=== PATIENT | male | born 1965 | race Caucasian/White ===

== ENCOUNTER 2019-01-01 05:18 | Inpatient (IN) | payer MEDICAID ==
[2019-01-01 06:03] VITALS: BP 98/59
[2019-01-01 06:05] LABS: HEMATOCRIT 24.4 % (42.0-54.0); HEMOGLOBIN 8.1 g/dL (13.5-17.5); MCH 30.6 pg (26.0-34.0); MCHC 33.2 g/dL (31.0-37.0); MCV 92.1 fL (80.0-100.0); MEAN PLATELET VOLUME 8.8 fL (7.4-10.4); PLATELET COUNT 394 10x3/uL (130-400); RBC 2.65 10x6/uL (4.20-6.10); RDW 18.1 % (11.5-14.5); WBC 25.6 10x3/uL (4.8-10.8)
[2019-01-01 06:19] LABS: ALBUMIN 1.9 g/dL (3.4-5.0); ALKALINE PHOSPHATASE 143 U/L (46-116); ALT (SGPT) 11 U/L (10-68); BILIRUBIN - TOTAL 0.77 mg/dL (0.2-1.3); CALC OSMOLALITY 265 mosm/kg (275-300); CALCIUM 7.8 mg/dL (8.5-10.1); CARBON DIOXIDE 25.5 mmol/L (21.0-32.0); CHLORIDE - SERUM 99 mmol/L (98-107); CREATININE - SERUM 0.6 mg/dL (0.6-1.3); GLUCOSE 94 mg/dL (74-106); POTASSIUM - SERUM 3.6 mmol/L (3.5-5.1); PROTEIN - SERUM 6.7 g/dL (6.4-8.2); SODIUM 133 mmol/L (136-145); UREA NITROGEN 13 mg/dL (7-18); eGFR NON AFRICAN AMERICAN > 90 mL/min (90-120)
--- NOTE | 2019-01-01 06:24 | NUR ---
0618--RECVD REPORT FROM ER NURSE INOCENCIA. INOCENCIA REPORTS THAT DR SNOWDEN WANTS THE PATIENT TO STAY IN THE ER TO BE OBSERVED- RESPIRATIONS ARE AT 6 PER MIN AT THIS TIME/. ER WILL CALL WHEN THE PATIENT IS READY FOR TRANSPORT
[2019-01-01 06:26] LABS: CREATINE KINASE 34 UL (21-232); LIPASE 43 U/L (73-393); PRO BNP 615 pg/mL (0-125); TROPONIN-I < 0.017 ng/mL (0.000-0.060)
[2019-01-01 06:49] LABS: EOSINOPHILS 2 % (0-7); LYMPHOCYTES 16 % (15-50); MONOCYTES 4 % (2-11); NEUTROPHILS 70 % (40-80); PLATELET ESTIMATE NORMAL
--- NOTE | 2019-01-01 07:00 | MORECARE ---
CASE MANAGEMENT DISCHARGE SUMMARY PATIENT: QUIN VILLEGAS UNIT: [id number] ADM DATE: 01/01/19 AGE: 53 : 67 SEX: M ROOM/BED: D.1212 AUTHOR: CHRISTINE,DOC PHYSICIAN: REFERRING PHYSICIAN: GISELA ELIAS MD DATE OF SERVICE: 01/01/19 Discharge Plan Patient Name: QUIN VILLEGAS [facility] [facility] 1965 Planned Disposition: Home Anticipated Discharge Date: 01/06/19 Discharge Date: Expected LOS: 5 Initial Reviewer: [email or web address] Initial Review Date: 01/01/2019 Generated: 01/01/19 7:59 am DCPIA - Discharge Planning Initial Assessment Updated by [email or web address]: Connie Betancur on 01/01/19 6:56 am * Is the patient Alert and Oriented? Yes * How many steps to enter\exit or inside your home? * PCP DR. OLIVER ([place]) * Pharmacy [facility] IN [place] * Preadmission Environment Home with Family * ADLs Independent * Equipment Other Walker * Other Equipment KNEE ROLLER PER * List name and contact numbers for known caregivers / representatives who currently or will assist patient after discharge: SARAH () [phone] * Verbal permission to speak to the caregivers and representatives has been obtained from the patient. Yes * Community resources currently utilized None * Additional services required to return to the preadmission environment? Yes * Can the patient safely return to the preadmission environment? Yes * Has this patient been hospitalized within the prior 30 days at any hospital? No Patient Name: QUIN VILLEGAS Page [id number] All edits/amendments must be made on the electronic document DICTATION DATE: 01/01/19658 MANUFACTURING ENGINEERING MANAGER: ROBINA 01/01/19658 RPT#: [id number] DC DATE: STATUS: ADM IN [facility] [address] [place] [address] END OF REPORT
--- NOTE | 2019-01-01 07:06 | MORECARE ---
CASE MANAGEMENT DISCHARGE SUMMARY PATIENT: QUIN VILLEGAS UNIT: [id number] ADM DATE: 01/01/19 AGE: 53 : 67 SEX: M ROOM/BED: D.1212 AUTHOR: CHRISTINE,DOC PHYSICIAN: REFERRING PHYSICIAN: GISELA ELIAS MD DATE OF SERVICE: 01/01/19 Discharge Plan Patient Name: QUIN VILLEGAS Facility: [facility]:[place] : 1965 Planned Disposition: Home Anticipated Discharge Date: 01/06/19 Discharge Date: Expected LOS: 5 Initial Reviewer: [email or web address] Initial Review Date: 01/01/2019 Generated: 01/01/19 8:06 am Comments DCP- Discharge Planning Updated by [email or web address]: Connie Betancur on 01/01/19 6:[address] Patient Name: QUIN VILLEGAS Admission Status: ER Accout number: [id number] Admission Date: 01-01-2019 : 1965 Admission Diagnosis: Attending: GISELA ELIAS Current LOS: 1 Anticipated DC Date: 01-06-2019 Planned Disposition: Home Primary Insurance: [employer] EXCHANGE Discharge Planning Comments: CM MET WITH PATIENT AND (SARAH) REGARDING D/C NEEDS AND PLANS. STATED THERE ARE 2 STEPS TO ENTER HOME AND NO STAIRS INSIDE. STATED SHE WILL DRIVE PATIENT HOME AT DISCHARGE. PATIENT IS INDEPENDENT WITH HIS CARE AND HAS A KNEE ROLLER ( CALLED IT) AND A WALKER AT HOME. PATIENTS PCP IS DR. OLIVER AT [place] AND USES [facility] IN [place]. PATIENT AND LIVE IN [facility]. PATIENT REFUSED HOME HEALTH AND SIGNED THE REFUSAL CHOICE FORM. PACKET OF CHOICES WERE GIVEN TO PATIENT. CM WILL CONTINUE TO FOLLOW PATIENT WITH D/C NEEDS AND PLANS. Tufting Machine Fixer: Connie Betancru DCPIA - Discharge Planning Initial Assessment Updated by [email or web address]: Connie Betancur on 01/01/19 6:56 am * Is the patient Alert and Oriented? Yes * How many steps to enter\exit or inside your home? * PCP DR. OLIVER ([place]) * Pharmacy [facility] IN [place] * Preadmission Environment Home with Family * ADLs Independent * Equipment Other Walker * Other Equipment KNEE ROLLER PER * List name and contact numbers for known caregivers / representatives who currently or will assist patient after discharge: SARAH () [phone] * Verbal permission to speak to the caregivers and representatives has been obtained from the patient. Yes * Community resources currently utilized None * Additional services required to return to the preadmission environment? Yes * Can the patient safely return to the preadmission environment? Yes * Has this patient been hospitalized within the prior 30 days at any hospital? No Last DP export: 01/01/19 5:59 a Patient Name: QUIN VILLEGAS Page [id number] All edits/amendments must be made on the electronic document DICTATION DATE: 01/01/19705 STEEL INSPECTOR: RBOINA 01/01/19705 RPT#: [id number] DC DATE: STATUS: ADM IN [facility] [address] [place] [address] END OF REPORT
--- NOTE | 2019-01-01 07:50 | MORECARE ---
CASE MANAGEMENT DISCHARGE SUMMARY PATIENT: QUIN VILLEGAS UNIT: [id number] ADM DATE: 01/01/19 AGE: 53 : 67 SEX: M ROOM/BED: D.1212 AUTHOR: CHRISTINE,DOC PHYSICIAN: REFERRING PHYSICIAN: GISELA ELIAS MD DATE OF SERVICE: 01/01/19 Discharge Plan Patient Name: QUIN VILLEGAS [facility] [facility] 1965 Planned Disposition: Anticipated Discharge Date: Discharge Date: Expected LOS: 0 Initial Reviewer: [email or web address] Initial Review Date: 01/01/2019 Generated: 01/01/19 8:50 am Patient Name: QUIN VILLEGAS Page [id number] All edits/amendments must be made on the electronic document DICTATION DATE: 01/01/19749 BICYCLE COURIER: ROBINA 01/01/19749 RPT#: [id number] [place] DATE: STATUS: ADM IN [facility] [address] [place] [address] END OF REPORT
[2019-01-01 08:00] VITALS: BP 95/59
--- NOTE | 2019-01-01 09:14 | NUR ---
CM WAS CALLED TO PATIENTS ROOM REGARDING HOSPICE. PATIENTS SON (MINOR) AND OTHER FAMILY SPOKE WITH CM AND REQUESTED [facility]. PATIENT WANTS TO GO HOME WITH HOSPICE. ORDER WAS OBTAINED AND FAXED TO [facility] [place]ERIY AT [place] STATED THEY WOULD BE AT HOSPITAL SOON TO SPEAK WITH FAMILY. THE CHOICES FOR HOSPICE WAS GIVEN TO FAMILY AND CHOICE FORM SIGNED. CM WILL CONTINUE TO FOLLOW PATIENT.
[2019-01-01 10:31] VITALS: BP 96/59; BMI 15.2
--- NOTE | 2019-01-01 11:00 | NUR ---
ALERT AND ORIENTED X4. RESTING IN BED. INSERT LEVY CATHETER 18FR. INFLATE BULB 10ml OF SALINE. URINE CLEAR YELLOW. SECURE LEVY TO INNER RT THIGH. LEVY DRAINING BY GRAVITY. DENIES ANY OTHER NEEDS AT THIS TIME. CONTINUE PLAN OF CARE AND SAFETY PRECAUTIONS.
[2019-01-01 12:00] VITALS: BP 100/60
[2019-01-01 16:00] VITALS: BP 98/61
--- NOTE | 2019-01-01 18:27 | NUR ---
ALERT AND ORIENTED X4. RESTING IN BED. FAMILY AT BEDSIDE. DISCHARGE INSTRUCTIONS GIVEN VERBALLY AND WRITTEN. DISCHARGE PAPERS SIGNED ON CHART. DC RT AC IV TIP INTACT. LT FA IV LEFT FOR TRANSPORTATION VIA AMBULANCE. LEVY LEFT FOR HOME HOSPICE. [facility] NOTIFIED FOR TRANSPORTATION. CONTINUE PLAN OF CARE AND SAFETY PRECAUTIONS.
--- NOTE | 2019-01-01 18:52 | NUR ---
[facility] ARRIVES FROM TRANSPORTATION. ASSIST TRANSFER FROM BED TO STRETCHER. DEPARTS FROM UNIT.
--- NOTE | 2019-01-02 09:47 | MORECARE ---
CASE MANAGEMENT DISCHARGE SUMMARY PATIENT: QUIN VILLEGAS UNIT: [id number] ADM DATE: 01/01/19 AGE: 53 : 67 SEX: M ROOM/BED: D.1212 AUTHOR: DIANA KING PHYSICIAN: REFERRING PHYSICIAN: GISELA ELIAS MD DATE OF SERVICE: 01/02/19 Discharge Plan Patient Name: QUIN VILLEGAS Facility: [facility]:[place] : 1965 Planned Disposition: Anticipated Discharge Date: Discharge Date: 01/01/2019 Expected LOS: 0 Initial Reviewer: [email or web address] Initial Review Date: 01/02/2019 Generated: 01/02/19 10:46 am Comments DCP- Discharge Planning Updated by [email or web address]: Chantal Reddy on 01/01/19 11:[address] Patient Name: QUIN VILLEGAS Encounter No: [id number] : 1965 Primary Insurance: [employer] EXCHANGE Production Editor: : ALEKSANDRA Note: HPI Narrative Patient arrives to the ER as a transfer from an outside facility for further evaluation of probable metastatic disease. Patient presented to the Hospital in [facility] with a several month history of increased weakness and decreased intake. On presentation, patient looks thin and cachectic and chronically ill. CT that facility showed likely metastatic disease throughout the abdominal area. She also was noted to have a 30,000 white count and a markedly decreased hemoglobin and hematocrit. She was given blood and transferred to this facility for further evaluation, treatment and prognosis. CT scan done at [facility] suspicious for primary lung cancer with metastatic disease radiology report Chantal Reddy Patient Name: QUIN VILLEGAS Page [id number] at 0947 All edits/amendments must be made on the electronic document DICTATION DATE: 01/02/19945 PAIRING MACHINE OPERATOR: ROBINA 01/02/19945 RPT#: [id number] DC DATE:01/01/19 STATUS: DIS IN [facility] [address] [place] [address] END OF REPORT
--- NOTE | 2019-01-02 12:36 | MORECARE ---
CASE MANAGEMENT DISCHARGE SUMMARY PATIENT: QUIN VILLEGAS UNIT: [id number] ADM DATE: 01/01/19 AGE: 53 : 67 SEX: M ROOM/BED: D.1212 AUTHOR: DIANA KING PHYSICIAN: REFERRING PHYSICIAN: GISELA ELIAS MD DATE OF SERVICE: 01/02/19 Discharge Plan Patient Name: QUIN VILLEGAS Facility: [facility]:[place] : 1965 Planned Disposition: Anticipated Discharge Date: Discharge Date: 01/01/2019 Expected LOS: 0 Initial Reviewer: [email or web address] Initial Review Date: 01/02/2019 Generated: 01/02/19 1:36 pm DCP- Discharge Planning Updated by [email or web address]: Chantal Reddy on 01/01/19 11:[address] Patient Name: QUIN VILLEGAS Encounter No: [id number] : 1965 Primary Insurance: [employer] EXCHANGE Vp Design: : ALEKSANDRA Note: HPI Narrative Patient arrives to the ER as a transfer from an outside facility for further evaluation of probable metastatic disease. Patient presented to the Hospital in [facility] [address] with a several month history of increased weakness and decreased intake. On presentation, patient looks thin and cachectic and chronically ill. CT that facility showed likely metastatic disease throughout the abdominal area. She also was noted to have a 30,000 white count and a markedly decreased hemoglobin and hematocrit. She was given blood and transferred to this facility for further evaluation, treatment and prognosis. CT scan done at [facility] suspicious for primary lung cancer with metastatic disease radiology report Chantal Reddy Last DP export: 01/02/19 8:46 a Patient Name: QUIN VILLEGAS Page 43342 at 1236 All edits/amendments must be made on the electronic document DICTATION DATE: 01/02/19 1235 COMMERCIAL RELIEF DRIVER: ROBINA 01/02/19 1235 RPT#: [id number] DC DATE:01/01/19 STATUS: DIS IN [place] [id number] [place] [id number] END OF REPORT
--- NOTE | 2019-01-03 12:02 | MORECARE ---
CASE MANAGEMENT DISCHARGE SUMMARY PATIENT: QUIN VILLEGAS UNIT: [id number] ADM DATE: 01/01/19 AGE: 53 : 67 SEX: M ROOM/BED: D.1212 AUTHOR: DIANA KING PHYSICIAN: REFERRING PHYSICIAN: GISELA ELIAS MD DATE OF SERVICE: 01/03/19 Discharge Plan Patient Name: QUIN VILLEGAS Facility: [facility]:[place] : 1965 Planned Disposition: Anticipated Discharge Date: Discharge Date: 01/01/2019 Expected LOS: 0 Initial Reviewer: [email or web address] Initial Review Date: 01/02/2019 Generated: 01/03/19 1:02 pm DCP- Discharge Planning Updated by [email or web address]: Chantal Reddy on 01/01/19 11:[address] Patient Name: QUIN VILLEGAS Encounter No: [id number] : 1965 Primary Insurance: [employer] EXCHANGE [employer] Mechanic: : ALEKSANDRA Note: HPI Narrative Patient arrives to the ER as a transfer from an outside facility for further evaluation of probable metastatic disease. Patient presented to the Hospital in [facility] with a several month history of increased weakness and decreased intake. On presentation, patient looks thin and cachectic and chronically ill. CT that facility showed likely metastatic disease throughout the abdominal area. She also was noted to have a 30,000 white count and a markedly decreased hemoglobin and hematocrit. She was given blood and transferred to this facility for further evaluation, treatment and prognosis. CT scan done at [facility] suspicious for primary lung cancer with metastatic disease radiology report Chantal Reddy Last DP export: 01/02/19 11:36 a Patient Name: QUIN VILLEGAS Page [id number] at 1202 All edits/amendments must be made on the electronic document DICTATION DATE: 01/03/19 1202 RESIN REMOVER: ROBINA 01/03/19 1202 RPT#: [id number] DC DATE:01/01/19 STATUS: DIS IN [place] [id number] [place] [address] END OF REPORT
== END 2019-01-01 18:53 | disposition home health service (06) | DRG 843 ==
LOC: D.ER 05:18 → D.M3 05:31
PROVIDERS: Family Medicine; ADMIT Internal Medicine Nephrology; ATTEND Internal Medicine Nephrology
DX: C80.1 Malignant (primary) neoplasm, unspecified (principal); A41.9 Sepsis, unspecified organism; E43 Unspecified severe protein-calorie malnutrition; R65.20 Severe sepsis without septic shock; R18.8 Other ascites; Z68.1 Body mass index [BMI] 19.9 or less, adult; F17.213 Nicotine dependence, cigarettes, with withdrawal; C79.02 Secondary malignant neoplasm of left kidney and renal pelvis; C79.01 Secondary malignant neoplasm of right kidney and renal pelvis; K80.20 Calculus of gallbladder without cholecystitis without obstruction; N28.1 Cyst of kidney, acquired; R63.0 Anorexia; D64.9 Anemia, unspecified; R41.0 Disorientation, unspecified; R62.7 Adult failure to thrive; K74.60 Unspecified cirrhosis of liver